=== PATIENT | female | born 1940 | race Asian ===

== ENCOUNTER 2020-12-13 10:46 | Emergency (ER) | payer OTHER ==
[~2020-12-13] VITALS: Ht 157.5 cm; Wt 39.9 kg
[2020-12-13 11:10] VITALS: Ht 157.5 cm; Wt 39.9 kg
[2020-12-13 13:24] VITALS: BP 105/88
== END 2020-12-13 14:41 | disposition home or self-care (01) ==
LOC: ED 10:46
DX: S01.511A Laceration without foreign body of lip, initial encounter (principal); I10 Essential (primary) hypertension; E11.9 Type 2 diabetes mellitus without complications; E78.00 Pure hypercholesterolemia, unspecified; F03.90 Unspecified dementia, unspecified severity, without behavioral disturbance, psychotic disturbance, mood disturbance, and anxiety; W19.XXXA Unspecified fall, initial encounter; Y93.89 Activity, other specified; Y92.89 Other specified places as the place of occurrence of the external cause; Y99.8 Other external cause status
CPT/HCPCS: 90715; J2001